=== PATIENT | male | born 2005 | race Two or more races ===

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

== ENCOUNTER 2024-12-27 06:37 | Emergency (ER) | payer MEDICAID, OTHER ==
[~2024-12-27] VITALS: Ht 182.9 cm; Wt 80.0 kg
[2024-12-27 07:26] VITALS: BP 149/83; PULSE 106; RESP 18; TEMP 98.7; O2SAT 98
[2024-12-27] MEDS: NEOMYCIN-BACITRACIN-POLYM UNITDOSE PKG TOP OINT TOP ONE (07:46)
[2024-12-27] MEDS: TETANUS-DIPTH-ACEL PERTUSSIS 0.5ML SYR Tdap IM ONE (07:47)
--- NOTE | 2024-12-27 07:53 | ED.PDOC ---
History of Present Illness HPI Comments 19-year-old male with no reported PMHx presents with a partial laceration to 1st distal phalanx to left thumb s/p work injury. Patient states that he was grinding metal and accidentally nicked his thumb with saw cutter. Patient reports that he initially cleaned the wound with alcohol wipes and placed antibiotic cream on it. Patient denies taking any OTC medications for this. Patient reports that this occurred at 05:30 this morning. Tdap unknown Chief Complaint: Laceration Time Seen by MD: 07:29 Primary Care Provider: KEL Reviewed Notes: Nurses Notes, Medications, Allergies Allergies: Coded Allergies: NO KNOWN ALLERGIES (Unverified , 02/17/10) Home Meds Active Scripts Acetaminophen (Acetaminophen) 500 Mg Tab, 500 MG PO Q6HP PRN for 10 Days, #40 TAB 0 Refills Prov:TRIYN MCMILLAN TRAIN GATEMAN 12/27/24 Ciprofloxacin Hcl (Cipro) 500 Mg Tab, 1 TAB PO BID for 7 Days, #14 TAB 0 Refills Prov:TRINY MCMILLAN TRAIN GATEMAN 12/27/24 Information Source: Patient Mode of Arrival: Ambulatory Severity: Moderate Timing: Hours Duration: Since onset Prehospital treatment: None Past Medical History PAST MEDICAL HISTORY: Denies Surgical History: Denies all surgeries Family History Family History: No family hx of DM, No family hx of Heart estrada, No family hx of HTN Social History Smoker: Non-Smoker Alcohol: Denies ETOH Use Drugs: Denies Drug Use Lives In: Home Constitutional: denies: chills, diaphoresis, fatigue, fever, malaise, sweats, weakness, others EENTM: denies: blurred vision, double vision, ear bleeding, ear discharge, ear drainage, ear pain, ear ringing, eye pain, eye redness, hearing loss, mouth pain, mouth swelling, nasal discharge, nose bleeding, nose congestion, nose pain, photophobia, tearing, throat pain, throat swelling, voice changes, others Respiratory: denies: cough, hemoptysis, orthopnea, SOB at rest, shortness of breath, SOB with excertion, stridor, wheezing, others Cardiovascular: denies: chest pain, dizzy spells, diaphoresis, Dyspnea on exertion, edema, irregular heart beat, left arm pain, lightheadedness, palpitations, PND, syncope, others Gastrointestinal: denies: abdomen distended, abdominal pain, blood streaked bowels, constipated, diarrhea, dysphagia, difficulty swallowing, hematemesis, melena, nausea, poor appetite, poor fluid intake, rectal bleeding, rectal pain, vomiting, others Genitourinary: denies: burning, dysuria, flank pain, frequency, hematuria, inc ontinence, penile discharge, penile sore, pain, testicle pain, testicle swelling, urgency, others Neurological: denies: dizziness, fainting, headache, left sided numbness, left sided weakness, numbness, paresthesia, pre-existing deficit, right sided numbness, right sided weakness, seizure, speech problems, tingling, tremors, weakness, others Musculoskeletal: denies: back pain, gout, joint pain, joint swelling, muscle pain, muscle stiffness, neck pain, others Integumetry: reports: laceration; denies: bruises, change in color, change in hair/nails, dryness, lesions, lumps, rash, wounds, others Allergic/Immunocompromised: denies: Difficulty Healing, Frequent Infections, Hives, Itching, others Hematologic/Lymphatic: denies: anemia, blood clots, easy bleeding, easy bruising, swollen glands, others Endocrine: denies: excessive hunger, excessive sweating, excessive thirst, excessive urination, flushing, intolerance to cold, intolerance to heat, unexplained weight gain, unexplained weight loss, others Psychiatric: denies: anxiety, bipolar disorder, depression, hopeless, panic disorder, schizophrenia, sleepless, suicidal, others All Other Systems: Reviewed and Negative Physical Exam General Appearance: No Apparent Distress, Normal HEENT: Normal ENT Inspection, Pharynx Normal, TMs Normal Neck: Full Range of Motion, Non-Tender, Normal, Normal Inspection Respiratory: Chest Non-Tender, Lungs Clear, No Accessory Muscle Use, No Respiratory Distress, Normal Breath Sounds Cardiovascular: No Murmur, No Gallop, Regular Rate/Rhythm Breast Exam: Deferred Gastrointestinal: No Organomegaly, Non Tender, No Pulsatile Mass, Normal Bowel Sounds, Soft Genitalia: Deferred Pelvic: Deferred Rectal: Deferred Extremities: No calf tenderness, Normal capillary refill, Normal inspection, Normal range of motion, Non-tender, No pedal edema Musculoskeletal : Location: Left Extremity Location: Thumb (No significant deformity on inspection, linear 1 cm superficial laceration to 1st distal phalanx, with minimal involvement of nail, hemostasis, no erythema, no FB, full ROM, neurovascularly intact) Apperance: Normal Neurologic: Alert, business risk consultant II-XII nml as Tested, No Motor Deficits, Normal Affect, No Sensory Deficits Cerebellar Function: Normal Reflexes: Normal Skin: Dry, Normal Color, Warm Lymphatic: No Adenopathy Was a procedure done? Was a procedure done?: No Differential Dx Considerations may include: FB, tendon injury, abrasion, laceration X-Ray, Labs, Meds, VS Vital Signs Date Time Temp Pulse Resp B/P (MAP) Pulse Ox O2 Delivery O2 Flow Rate FiO2 12/27/24 07:26 106 18 98 Room Air 12/27/24 07:26 98.7 106 18 149/83 (105) 98 98.7 12/27/24 06:50 98.7 106 18 149/83 (105) 98 98.7 Current Medications Medications (Trade) Dose Ordered Sig/Thaddeus Route Start Time Stop Time Status Last Admin Neomycin/ Polymyxin/ Bacitracin (Triple Antibiotic) 1 applic ONCE ONCE TOP 12/27/24 07:45 12/27/24 07:46 DC 12/27/24 07:46 Lidocaine HCl (Xylocaine 1%) ONCE ONCE ID 12/27/24 07:45 12/27/24 07:46 DC 12/27/24 07:56 Diphtheria/ Tetanus/Acell Pertussis (Boostrix T-Dap) 0.5 ml ONCE ONCE IM 12/27/24 07:45 12/27/24 07:46 DC 12/27/24 07:47 X-Ray, Labs, Meds, VS Comment 19-year-old male with no reported PMHx presents with a partial laceration to 1st distal phalanx to left thumb s/p work injury. Patient arrives alert and oriented, ABC's intact, afebrile, vital signs stable, saturating well in room air Diagnostic imaging ordered by me and results interpreted by radiology : LEFT HAND X-RAY Patient was given: LIDOCAINE. Tolerated medications with no adverse reaction. patient with partial avulsion of thumb. Nail intact. No injury. Take tylenol and/or motrin for pain. Follow-up with primary care doctor in 2-3 days for re- check. Return to ER as needed. Tdap Updated On examination, there is no evidence of active infection, significant bleeding, or soft tissue injury. Given the absence of symptoms such as infection or ongoing pain, conservative management is appropriate. The patient was instructed on proper wound care, including keeping the area clean and dry to prevent infection. I provided education on signs of infection, such as increased pain, pus, or redness, and advised the patient to seek care immediately if any of these symptoms develop. The patient was also informed that it may take several months for the nail to fully regrow. No immediate intervention is necessary, but I recommended a follow-up appointment with podiatry to assess healing and ensure there are no complications. If the patient experiences symptoms or concerns before the follow-up, they are encouraged to return sooner for evaluation. Additional MDM Review of External, Non-ED records: External records reviewed. Discussion with independent historian (EMS, family) history obtained from the patient/parents (if applicable) at bedside Chronic conditions affecting care: None Social determinants of health affecting care: None Consideration of admission (observation or admission): I considered escalation of care to admission for this patient, however given the reassuring workup, the patient is safe for outpatient management. Discussion with the Radiology: No Tests considered but not performed: Prescription medication considered but not given: Time of 1ST Reevaluation: 07:57 Reevaluation 1ST: Improved Patient Education/Counseling: Diagnosis, Treatment, Prognosis Family Education/Counseling: Diagnosis, Treatment, Prognosis SEPSIS Sepsis Screen Date sepsis recognized/suspect: Dec 27, 2024 Time Sepsis recognized/suspect: 646 Recent Procedure: No On Antibiotic Therapy: No Respiratory Rate >20: No Heart Rate >90: No Temp<36 C (96.8 F) or >38.3 C: No SBP <90 or MAP <65 mmHG: No New Acute Mental Status Change: No Is the patient on CPAP, BIPAP,: No Orders/Vitals/Labs Physician Orders L Hand 3v Xray (12/27/24 07:32) Vital Signs Date Time Temp Pulse Resp B/P (MAP) Pulse Ox O2 Delivery O2 Flow Rate FiO2 12/27/24 07:26 106 18 98 Room Air 12/27/24 07:26 98.7 106 18 149/83 (105) 98 98.7 12/27/24 06:50 98.7 106 18 149/83 (105) 98 98.7 Medications Medications Dose Ordered Sig/Thaddeus Route Start Time Stop Time Status Last Admin Dose Admin Diphtheria/ Tetanus/Acell Pertussis 0.5 ml ONCE ONCE IM 12/27/24 07:45 12/27/24 07:46 DC 12/27/24 07:47 Lidocaine HCl ONCE ONCE ID 12/27/24 07:45 12/27/24 07:46 DC 12/27/24 07:56 Neomycin/ Polymyxin/ Bacitracin 1 applic ONCE ONCE TOP 12/27/24 07:45 12/27/24 07:46 DC 12/27/24 07:46 Departure 1 Departure Time of Disposition: 08:29 Impression: Primary Impression: Finger injury Qualified Codes: S69.92XA - Unspecified injury of left wrist, hand and finger(s), initial encounter Disposition: HOME / SELF CARE / HOMELESS Condition: Stable e-Prescriptions Acetaminophen (Acetaminophen) 500 Mg Tab 500 MG PO Q6HP PRN for 10 Days, #40 TAB 0 Refills Prov: TRINY MCMILLAN NP 12/27/24 Ciprofloxacin Hcl (Cipro) 500 Mg Tab 1 TAB PO BID for 7 Days, #14 TAB 0 Refills Prov: TRINY MCMILLAN NP 12/27/24 Discharged With: Self Critical Care Note Critical Care Time?: No Stability Stability form required: No Heart Score Heart Score: Heart Score Response (Comments) Value History N/A 0 EKG N/A 0 Age N/A 0 Risk Factors N/A 0 Troponin N/A 0 Total 0 I personally scribed for TRINY MCMILLAN NP ([email or web address]) on 12/27/24 at 07:53. Electronically submitted by Stephen Zavala ([email or web address]). TRINY MCMILLAN NP Dec 27, 2024 07:53
[2024-12-27] MEDS: LIDOCAINE 1% HCL (LOCAL ANESTH.) INJ 20ML MDV ID ONE (07:56)
--- NOTE | 2024-12-27 08:14 | DVH ---
EXAM: XY L HAND 3V XRAY CLINICAL INDICATION: Injury to the thumb. R/o FB, fracture TECHNIQUE: XY L HAND 3V XRAY Comparison: None FINDINGS/IMPRESSION: There is no evidence of acute fracture or dislocation. Punctate radiopaque 1mm foreign body in subcutaneous tissue. The alignment is anatomical. There is no radiopaque foreign body.
[2024-12-27] MEDS ORDERED: ACET500T58 PO (08:30)
[2024-12-27] MEDS ORDERED: CIPR-173 PO (08:30)
== END 2024-12-27 08:30 | disposition home or self-care (01) ==
LOC: ER 06:37
DX: S61.012A Laceration without foreign body of left thumb without damage to nail, initial encounter (principal); W45.8XXA Other foreign body or object entering through skin, initial encounter; Y93.89 Activity, other specified; Y92.89 Other specified places as the place of occurrence of the external cause; Y99.8 Other external cause status
CPT/HCPCS: 73130; 90471; 90715; 99283; J2003